=== PATIENT | female | born 1990 | race Caucasian/White ===

== ENCOUNTER 2022-05-09 11:54 | Emergency (ER) | payer OTHER, SELFPAY ==
[2022-05-09 12:05] VITALS: BP 112/85; PULSE 89; RESP 16; TEMP 36.9; O2SAT 99
--- NOTE | 2022-05-09 12:10 | ED.SKABFB ---
HPI - Skin/Abscess/Foreign Bdy General Chief complaint: Ear Stated complaint: swelling behind left side ear/eye Time Seen by Provider: 05/09/22 12:20 Source: patient Mode of arrival: ambulatory Limitations: no limitations History of Present Illness HPI narrative: 32-year-old female presented for complaint of tender bumps behind the left ear which she first noticed yesterday. Also reports red nontender bumps to left scalp over forehead and red tender bumps to left eyebrow today. Endorses mild left cheek swelling and pressure sensation. Intermittent episodes of brief blurred vision to left eye. Pt had covid 2 weeks ago, endorses increased stress. Also changed beauty products about 1 week ago. Related Data Home Medications Medication Instructions Recorded Confirmed amoxicillin 500 mg-potassium 1 tablet DIRECTED 05/09/22 05/09/22 clavulanate 125 mg tablet dexamethasone 4 mg tablet 4 mg DIRECTED 05/09/22 05/09/22 escitalopram oxalate 10 mg tablet 10 mg DIRECTED 05/09/22 05/09/22 Allergies Allergy/AdvReac Type Severity Reaction Status Date / Time No Known Allergies Allergy Verified 05/09/22 12:19 Review of Systems Review of Systems: CONSTITUTIONAL: Denies body aches, fever, chills, or sweats. EYES: Denies redness, or discharge. ENT: Denies rhinorrhea, congestion CARDIOVASCULAR: Denies chest pain, palpitations, or edema. RESPIRATORY: Denies cough or dyspnea. SKIN: red bumps to scalp and behind left ear MUSCULOSKELETAL: Denies back pain, joint pain, or myalgia. NEUROLOGIC: Denies headache, numbness, tingling, or weakness. PMFSH Comments At time of signature, I have reviewed and agree with nursing past medical, surgical, social and family history unless otherwise noted. Please see nursing chart for further information. There is no relevant family history pertinent to the presenting complaint Exam Narrative: GENERAL: Well-appearing HEAD: Normocephalic, atraumatic. EYES: conjunctivae clear, and EOMI. ENT: Mucous membranes moist. Oropharynx without edema, erythema or lesions. TMs with normal light reflexes bilaterally, bilateral external ears normal. Postauricular and parotid lymphadenopathy noted NECK: Supple. mild anterior cervical lymph node tenderness CHEST: Clear to auscultation. HEART: Regular rate and rhythm. SKIN: Warm, dry. Erythematous circular lesion to left upper forehead/scalp line with minimal tenderness, no drainage; erythematous linear lesions to left scalp distal to other lesion, mild TTP; left eyebrow with erythematous tender lesion; mild left cheek swelling and tenderness NEURO: Alert and oriented x3. Course Course Emergency Course: Patient is aware of diagnosis, understands and agrees to treatment plan. Anticipatory guidance given. Patient agrees to follow-up as directed and is aware of reasons to seek care at the emergency department. 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 Bilateral ears appear normal, no s/s infection. Advised caution for zoster lesions given the erythematous tender lesions and no s/s infection. She states she had shingles 3 years ago and it does not feel similar. She is advised to start the valacyclovir. She states she wants to wait. Instructed patient to go to nearest ER [facility]
== END 2022-05-09 12:36 | disposition home or self-care (01) ==
PROVIDERS: Emergency Provider Nurse Practitioner Family
DX: R59.0 Localized enlarged lymph nodes (principal); F41.9 Anxiety disorder, unspecified; F32.A Depression, unspecified; Z86.16 Personal history of COVID-19
CPT/HCPCS: 99213; G0463